=== PATIENT | female | born 1965 | race Caucasian/White ===

== ENCOUNTER 2020-04-28 00:57 | Emergency (ER) | payer OTHER ==
[2020-04-28 01:03] VITALS: BP 180/90; PULSE 71; TEMP 98.3; BMI 42.5
--- NOTE | 2020-04-28 01:36 | PDOC ---
History of Present Illness - General Chief Complaint: Injury Stated Complaint: INJURY/PAIN Time Seen by Provider: 04/28/20 01:29 History Source: Patient - History of Present Illness Initial Comments: 04/28/20 02:28 55-year-old female yesterday at 2 PM reports tripped and fell down 6 steps at home. Reported landing on left side rib. Now with a lot of pain. Patient reports taking Tylenol prior to bed with no significant improvement in pain. Denies shortness of breath, nausea, vomiting, dizziness. Past History - Medical History Allergies/Adverse Reactions: Allergies Allergy/AdvReac Type Severity Reaction Status Date / Time No Known Allergies Allergy Verified 04/28/20 01:02 Home Medications: Ambulatory Orders Ibuprofen 600 mg PO QID PRN #20 tablet 04/28/20 Tramadol HCl [Ultram] 50 mg PO BID #6 tablet MDD 2 04/28/20 COPD: No HTN: Yes - Psycho-Social/Smoking History Smoking History: Never smoked - Substance Abuse Hx (Audit-C & DAST Scrn) How often the patient has a drink containing alcohol: Never Score: In Men: 4 or > Positive; In Women: 3 or > Positive: 0 Screen Result (Pos requires Nsg. Audit-10AR): Negative Review of Systems - Review of Systems Able to Perform ROS?: Yes Is the patient limited [place] proficient: No *Physical Exam - Vital Signs Last Vital Signs Temp Pulse Resp BP Pulse Ox 98.3 F 71 18 180/90 H 99 04/28/20 01:00 04/28/20 01:00 04/28/20 01:00 04/28/20 01:00 04/28/20 01:00 - Physical Exam General Appearance: Yes: Appropriately Dressed Respiratory/Chest: positive: Lungs Clear, Normal Breath Sounds Cardiovascular: positive: Regular Rhythm, Regular Rate Gastrointestinal/Abdominal: positive: Normal Bowel Sounds, Tender (LUQ), Soft Musculoskeletal: negative: CVA Tenderness Extremity: positive: Normal Capillary Refill, Normal Inspection, Normal Range of Motion Integumentary: positive: Normal Color, Dry, Warm Neurologic: positive: Fully Oriented, Alert, Normal Mood/Affect ED Treatment Course - LABORATORY CBC & Chemistry Diagram: 04/28/20 02:55 04/28/20 02:55 ED Progress Note - Progress Note Progress Note: 04/28/20 05:39 A: rib contusion; back pain P: xray: neg for fracture. patient in significant pain will ct r/o acute bleeding/ fractures labs ua: no blood. pain control Medical Decision Making - Medical Decision Making 04/28/20 04:39 There is no aortic laceration or mediastinal hematoma.. There is no significant mediastinal or hilar adenopathy. The heart size is normal. The trachea and bronchi are patent. There is no pleural or pericardial effusion. The lungs are clear. No pneumothorax. No fractures. CT abdomen and pelvis:Normal liver, gallbladder, pancreas, spleen, adrenal glands and kidneys. The stomach and abdominal small and large bowel are normal. There is no aortic dissection or aneurysm. There is no significant retroperitoneal lymphadenopathy. No retroperi toneal hematoma The pelvic small and large bowel are normal. The appendix is normal. The uterus and adnexal structures are normal. Urinary bladder is unremarkable. There is no pelvic free fluid. No discrete pelvic lymphadenopathy is identified. No fracture Discharge - Discharge Information Problems reviewed: Yes Clinical Impression/Diagnosis: Rib pain on left side, Fall (on) (from) other stairs and steps, initial encounter Disposition: HOME - Additional Discharge Information Prescriptions: Ibuprofen 600 mg PO QID PRN #20 tablet PRN Reason: Pain Tramadol HCl [Ultram] 50 mg PO BID #6 tablet MDD 2 - Follow up/Referral - Patient Discharge Instructions Patient Printed Discharge Instructions: How to Prevent Falls Additional Instructions: Apply ice to the area. Take ibuprofen every 6 hours as needed for pain. Follow-up with your doctor as soon as possible - Post Discharge Activity Work/Back to School Note: Back to Work
--- NOTE | 2020-04-28 02:04 | PDOC ---
*Physical Exam - Vital Signs Last Vital Signs Temp Pulse Resp BP Pulse Ox 98.3 F 71 18 180/90 H 99 04/28/20 01:00 04/28/20 01:00 04/28/20 01:00 04/28/20 01:00 04/28/20 01:00 ED Treatment Course - LABORATORY CBC & Chemistry Diagram: 04/28/20 02:55 04/28/20 02:55 Medical Decision Making - Medical Decision Making 04/28/20 02:04 Patient seen by the advanced practice provider under my supervision. Ancillary testing reviewed as necessary. I agree with plan as outlined by the advanced practice provider. Discharge - Discharge Information Problems reviewed: Yes Clinical Impression/Diagnosis: Rib pain on left side, Fall (on) (from) other stairs and steps, initial encounter Disposition: HOME - Additional Discharge Information Prescriptions: Ibuprofen 600 mg PO QID PRN #20 tablet PRN Reason: Pain Tramadol HCl [Ultram] 50 mg PO BID #6 tablet MDD 2 - Follow up/Referral - Patient Discharge Instructions Patient Printed Discharge Instructions: How to Prevent Falls Additional Instructions: Apply ice to the area. Take ibuprofen every 6 hours as needed for pain. Follow-up with your doctor as soon as possible - Post Discharge Activity Work/Back to School Note: Back to Work
[2020-04-28] MEDS ORDERED: traMADol HCL 50 MG TABLET PO ONE (02:27)
[2020-04-28] MEDS ORDERED: traMADol HCL 50 MG TABLET ONE (02:33)
[2020-04-28 03:11] LABS: BASO % 0.5 % (0-2.0); EOS % 2.1 % (0-4.5); HEMATOCRIT 40.2 % (32.4-45.2); HEMOGLOBIN 13.3 GM/dL (10.7-15.3); LYMPH % 18.2 % (8-40); MCH 28.7 pg (25.7-33.7); MCHC 33.2 g/dl (32.0-36.0); MEAN CELL VOLUME 86.5 fl (80-96); MONO % 8.4 % (3.8-10.2); NEUT % 70.8 % (42.8-82.8); PLATELET COUNT 287 K/MM3 (134-434); RBC 4.64 M/mm3 (3.60-5.2); RDW 14.2 % (11.6-15.6); WHITE BLOOD COUNT 7.2 K/mm3 (4.0-10.0)
[2020-04-28 03:33] LABS: ALBUMIN 3.8 g/dl (3.4-5.0); BILIRUBIN,TOTAL 0.6 mg/dL (0.2-1); BLOOD UREA NITROGEN 10.3 mg/dL (7-18); CREATININE 0.6 mg/dL (0.55-1.3); POTASSIUM 4.5 mmol/L (3.5-5.1); TOT PROT 7.8 g/dl (6.4-8.2)
[2020-04-28 05:01] LABS: EPI CELLS 10 /uL (0-25.1); HYALINE CASTS 1 /uL (0-3.1); PH,URINE 5.5 (5.0-8.0); URINE APPEARANCE CLEAR; URINE BACTERIA 13 /uL (0-1359); URINE BILIRUBIN NEGATIVE (NEGATIVE); URINE COLOR YELLOW; URINE GLUCOSE (UA) NEGATIVE (NEGATIVE); URINE KETONE NEGATIVE (NEGATIVE); URINE LEUK ESTERASE TRACE (NEGATIVE); URINE NITRITE NEGATIVE (NEGATIVE); URINE PROTEIN 2+ (NEGATIVE); URINE RBC 9 /uL (0-23.9); URINE UROBILINOGEN 0.2 mg/dL (0.2-1.0); URINE WBC 26 /uL (0-25.8)
== END 2020-04-28 05:50 | disposition home or self-care (01) ==
LOC: JER 00:57
DX: R07.81 Pleurodynia (principal); W10.8XXA Fall (on) (from) other stairs and steps, initial encounter
CPT/HCPCS: 36415; 71046-TC-FY; 71101-TC-LT-FY; 71260-TC; 74177-TC; 80053; 81003; 83690; 85025; 99285-25